=== PATIENT | male | born 1985 | race Caucasian/White ===

== ENCOUNTER 2024-01-10 23:08 | Emergency (ER) | payer SELFPAY ==
[~2024-01-10] VITALS: Ht 170.2 cm; Wt 74.8 kg
[2024-01-10 23:08] VITALS: BP 105/78; RESP 17; TEMP 98
[2024-01-10 23:10] VITALS: BP 105/78; RESP 17; TEMP 98
== END 2024-01-11 00:02 ==
LOC: MED 23:08
DX: Z02.89 Encounter for other administrative examinations (principal); Z79.899 Other long term (current) drug therapy; V49.88XA Car occupant (driver) (passenger) injured in other specified transport accidents, initial encounter; Y93.89 Activity, other specified; Y92.89 Other specified places as the place of occurrence of the external cause; Y99.8 Other external cause status
CPT/HCPCS: 99283